=== PATIENT | female | born 1950 | race Caucasian/White ===

== ENCOUNTER 2022-01-07 14:06 | Outpatient (CLI) | payer MEDICARE, SELFPAY ==
[2022-01-07 14:58] LABS: Hematocrit 38.5 % (37.0-47.0); Hemoglobin 12.7 g/dL (12.0-15.0)
== END 2022-01-07 14:07 | disposition home or self-care (01) ==
PROVIDERS: Visit Provider Obstetrics & Gynecology Gynecology
DX: N81.4 Uterovaginal prolapse, unspecified (principal); Z01.818 Encounter for other preprocedural examination
CPT/HCPCS: 36415; 85014; 85018; 86850; 86900; 86901

== ENCOUNTER 2022-01-11 01:15 | Day surgery (SDC) | payer MEDICARE, SELFPAY ==
[2022-01-06 13:27] VITALS: BMI 25.2
--- NOTE | 2022-01-06 13:35 | PC.NURSE ---
Report to the Outpatient Waiting Room, entrance under the green pavilion located off [facility], at time _0630_ on date _[id number]_. OR Time: _0830_. - You and your visitor will be asked to self-screen and do not enter if you have any COVID symptoms. - Only one visitor and NO children visitors are allowed at this time. - The patient visitor is requested to leave or wait in car when not with patient due to restrictions. - A mask is required within the hospital. Patients may have clear liquids (water, carbonated beverages, clear teas, apple juice) until 3 hours prior to surgery with a maximum of 20 ounces. - No food from midnight until time of surgery Take the following medications with a SIP of water the morning of surgery: __None Medications to discontinue per physician __All vitamins and supplements Date to take last hoii___[phone] Please no make-up, nail palauan, hairspray, perfume, deodorant, or body powder the day of surgery. No jewelry (including any body piercings) or valuables the day of surgery, leave them at home. Please take a shower or bath the night before, or the morning of, surgery with an antibacterial soap. Wear comfortable, loose fitting clothing. - Jewelry must be removed prior to entering the operating room. Rings and piercings that are not removed may be cut off. - The hospital will not accept responsibility for valuables. - Please leave all valuables, including medications, at home the day of surgery. If you are going home after surgery, a licensed ambulette driver must drive you home. - NO public transportation without another adult. - We recommend that an adult stay with you for 24 hours following discharge. - We also recommend that you do not drive, make important decision, drink alcoholic beverages, or take any drugs that were not prescribed by your health care provider for at least 24 hours after your discharge time. Follow any additional instructions given to you from your surgeon. If you or anyone in your household have experienced Covid symptoms in the past week, please notify your surgeon or the nurse liaison at the phone number below for possible testing. Telephone instructions given to ___Patient and asked if any additional questions and then verbalized understanding. Patient advised to call surgeon office or pre surgery nurse liaison [phone] if any additional questions.
[2022-01-11] VITALS (10 sets, daily range): BP systolic 98–168; BP diastolic 57–77; PULSE 54–72; RESP 10–18; TEMP 36.2–36.9; O2SAT 93–100
[2022-01-11] MEDS: ACETAMINOPHEN 500 MG TABLET 1000 MG PO (06:58)
[2022-01-11] MEDS: KETOROLAC 15 MG/ML VIAL (*BKC) IV PUSH (07:00)
--- NOTE | 2022-01-11 07:19 | WPDHPUPDATE1 ---
History and Physical Update Update Date/Time: 01/11/22 07:19 History and Physical has been reviewed, including an updated exam of the patient. There are NO changes in the patient's condition. Risks, benefits, and alternatives have been discussed and questions answered. Patient agrees to proceed with procedure.
--- NOTE | 2022-01-11 07:19 | PM.HPGS ---
History of Present Illness History of Present Illness Consent: Risks, benefits, and alternatives have been discussed and questions answered. Patient agrees to proceed with procedure. Chief complaint: Cystocele and Uterine Prolapse Narrative: Mis Puentes is a 71 year old female with uterine prolapse and a cystocele. Patient reports feeling constant pulling and pressure in the vagina as well as feeling a bulge at the opening vagina. Supported urodynamics were normal without any leaking identified. It was recommended to proceed with total vaginal hysterectomy and anterior vaginal repair. In addition, if the ovaries are able to be reached vaginally, we will plan for possible BSO. Risks of infection, bleeding, injury to internal organs (bowel, bladder, ureters), DVT, conversion to open procedure, and anesthesia were reviewed. Patient's questions were answered. Postoperative expectations were reviewed. Patient voices understanding and agrees to proceed. Review of Systems Review of Systems: not repeated day of surgery; patient states no changes in status PMFSH Past Medical History Medical History (Updated 01/11/22 @ 07:24 by Sienna Maher MD) (normal spontaneous vaginal delivery) x4 Surgical History Surgical History (Updated 01/11/22 @ 07:23 by Sienna Maher MD) History of bilateral tubal ligation Social History Social History Smoking status: Never smoker Living arrangements: with family Spiritual care concerns: No Meds Home Medications and Allergies Home Medications Medication Instructions Recorded Confirmed Type Ancient Nutrition 1 tsp PO DAILY 01/06/22 01/06/22 History [place] Q Plus Max 2 cap PO BID 01/06/22 History multivitamin 1 tablet PO DAILY 01/06/22 01/06/22 History psyllium husk 3.4 gram/5.4 gram 1 tbsp PO DAILY 01/06/22 01/06/22 History oral powder (Metamucil) vitamins A,C,V-qgfi-rcdbej 2,148 1 tablet PO DAILY 01/06/22 01/06/22 History mcg-113 mg-45 mg-17.4 mg tablet (PreserVision AREDS) Allergies Allergy/AdvReac Type Severity Reaction Status Date / Time No Known Allergies Allergy Verified 01/06/22 13:22 Exam Const: General: healthy appearing and alert Orientation/consciousness: patient oriented x3 GI: GI Palp: Yes Soft to palpation, No Tenderness to palpation present (GI) and No Palpable mass present : External Female Exam: normal external appearance Speculum Exam - Vagina: normal appearance of the vagina, normal vaginal discharge and other (Cystocele) Speculum Exam - Cervix: normal appearance of the cervix Bimanual exam- vagina & uterus: uterine size normal, consistency normal and other (Uterine descent +1 from spines) Bimanual Exam- Adnexa, other: normal adnexae and No adnexal tenderness Neuro: General: patient oriented x3 Assessment and Plan Assessment and plan (1) Cystocele with uterine prolapse: Code(s): N81.4 - Uterovaginal prolapse, unspecified Status: Acute Assessment and Plan: Plan to proceed with total vaginal hysterectomy and anterior vaginal repair and possible bilateral salpingo-oophorectomy
[2022-01-11] MEDS: LACTATED RINGERS 1,000 ML 30 ML IV CONT ×2 (07:26→09:45)
--- NOTE | 2022-01-11 07:44 | P.PNAN_ITS ---
Anes - Initial Pre Proc Eval Procedure: Operation Date: 01/11/22 08:30 Proposed Procedures p Total Vaginal Hysterectomy with Anterior Vaginal Repair - Sienna Maher MD Date/Time: 01/11/22 07:44 Surgeon: Sienna Maher MD Pre Op Diagnosis: Cystocele and Uterine Prolapse Patient Data Age: 71 Gender: F Height: 1.63 m Weight: 66.8 kg Allergies Allergy/AdvReac Type Severity Reaction Status Date / Time No Known Allergies Allergy Verified 01/06/22 13:22 Home Medications Medication Instructions Recorded Confirmed Type Ancient Nutrition 1 tsp PO DAILY 01/06/22 01/06/22 History [place] Q Plus Max 2 cap PO BID 01/06/22 History multivitamin 1 tablet PO DAILY 01/06/22 01/06/22 History psyllium husk 3.4 gram/5.4 gram 1 tbsp PO DAILY 01/06/22 01/06/22 History oral powder (Metamucil) vitamins A,C,Y-xybf-trzias 2,148 1 tablet PO DAILY 01/06/22 01/06/22 History mcg-113 mg-45 mg-17.4 mg tablet (PreserVision AREDS) Patient hx anesthesia problems: none Family hx anesthesia problems: none Results Review: All pre-operative results and documents have been reviewed as part of the pre- operative evaluation. [facility] Surgical History Surgical History History of bilateral tubal ligation Social History Social History Smoking status: Never smoker Living arrangements: with family Spiritual care concerns: No Anes - Eval Final PreProcedure Day of Procedure 01/11/22 07:44 Patient weight: overweight Heart: regular rate and rhythm Lungs: clear to auscultation Airway: Mallampati scale class II Neurological: alert and oriented Last oral intake: >/= 8 hours ASA classification: II Emergent: no Anesthetic plan: proceed Anesthesia type and monitoring: general LMA and standard monitoring Results Review: All pre-operative results and documents have been reviewed as part of the pre- operative evaluation. Informed Consent: The patient's anesthetic plan and its attendant risks and benefits were discussed with the patient/family/POA. Questions were solicited and answers provided to the satisfaction of the patient/family/POA.
[2022-01-11] MEDS: ceFAZolin 2 GM/D5W 50 ML 2 GM/50 ML BAG IVPB (08:19)
[2022-01-11] MEDS: LIDO 1%/EPINEPHRINE 1:100,000 50 ML VIAL INFILTRATE (09:31)
--- NOTE | 2022-01-11 09:38 | W.PM.PROC2 ---
Procedure Note - Detailed Date of Procedure 01/11/22 Pre-op Diagnosis Cystocele and Uterine Prolapse Post-op Diagnosis Same Procedure Performed Total vaginal hysterectomy & anterior vaginal repair Surgeon Sienna Maher MD Anesthesia General Findings Third-degree cystocele with uterine prolapse Description of Procedure The patient was taken to the operating room and placed under anesthesia in the dorsal lithotomy position. She was prepped and draped in usual sterile fashion. The Reilly catheter was placed prior to the procedure. The short weighted speculum was placed posteriorly. The Lucille retractor was placed anteriorly. The cervix was grasped on the anterior lip with a tenaculum. The vaginal mucosa is injected in a circumferential manner around the cervix. The scalpel was used to incise the vaginal mucosa in a circumferential manner around the cervix. The vaginal mucosa was dissected off anteriorly using sharp and blunt dissection. The peritoneum was entered and the Lucille retractor replaced. The posterior vaginal mucosa was dissected off using sharp and blunt dissection. The posterior peritoneum is entered. The short weighted speculum was removed. The long weighted speculum is placed through the posterior perineal incision. The cardinal and uterosacral ligaments were serially clamped, transected, and suture ligated with 0 Vicryl. The uterosacral ligaments were tagged for future use. The uterine vessels are clamped, transected, and suture ligated with 0 Vicryl. The posterior fundus is grasped with a piercing towel clamp and delivered to the cul-de-sac. The uterosacral ligaments are clamped, transected, and suture ligated with 0 Vicryl. The ovaries are not visible or palpable. The specimen was amputated and handed to the staff. The long weighted speculum was replaced with a short weighted speculum. The peritoneum was grasped anteriorly and posteriorly with a Peon. All pedicles were noted to be hemostatic. The peritoneum was closed using 0 Ethibond in a pursestring fashion incorporating the previously tagged uterosacral ligaments. The vaginal mucosa was then closed using 0 Vicryl in a running locked fashion. The Lucille retractor was removed and the base of the cystocele grasped at 5 and 7 with Allis clamps. The intervening tissue was incised with a scalpel. The vaginal mucosa in the midline is injected with 1% lidocaine with epinephrine. The midline dissection is performed using Metzenbaum scissors. The mucosa is incised and grasped with Allis clamps until the apex was reached. A single apex Allis clamp is placed. The lateral dissection is performed using blunt dissection. Once the cystocele was dissected off the vaginal mucosa, the cystocele was reduced using 0 Ethibond interrupted horizontal mattress sutures. Once the cystocele was fully reduced, the excess vaginal mucosa is excised using Metzenbaum scissors. The vaginal mucosa was then closed using 0 Vicryl in a running locked fashion. Good hemostasis is noted. Vaginal packing coated with Premarin cream is placed and all instruments are removed. Sponge, needle, and instrument counts are correct per the OR staff. The patient is awakened from anesthesia and taken to recovery in stable condition. Estimated Blood Loss 50 Drains Yes (Reilly catheter) Packing Yes (Vaginal) Pathology Yes (Uterus) Complications No immediate complications Condition Stable Disposition PACU
--- NOTE | 2022-01-11 09:44 | P.DS_ITS ---
DS: Admitting Diagnosis Discharge Date 01/12/22 Admitting Diagnosis Uterine prolapse with cystocele DS: Discharge Diagnosis Discharge Diagnosis (1) S/P vaginal hysterectomy: Code(s): Z90.710 - Acquired absence of both cervix and uterus Status: Acute (2) S/P anterior colporrhaphy: Code(s): Z98.890 - Other specified postprocedural states Status: Acute (3) Cystocele with uterine prolapse: Code(s): N81.4 - Uterovaginal prolapse, unspecified Status: Acute DS: Summary Hospital Course Hospital Course: The patient is tolerating a regular diet, voiding, and ambulating prior to discharge. Status at Discharge Functional status at discharge: independent ambulation Overall status at discharge: patient is progressing back to baseline Time Spent with Patient Time attestation: Total time spent providing and/or coordinating discharge services: DS: Data Data Completed and Pending Pending studies at discharge: Pending at discharge 01/11/22 09:30 Surgical [PTH] Routine Discharge Plan Discharge Patient Disposition: Home, Self-Care Stand Alone Forms: General Discharge Instructions Follow-up/Referrals: Sienna Maher MD [Physician] - 1 Week (and 6 wk) Discharge Medications: Continued Ancient Nutrition 1 tsp PO DAILY multivitamin Tablet 1 tablet PO DAILY PreserVision AREDS 2,148 mcg-113 mg-45 mg-17.4mg Tablet 1 tablet PO DAILY Rx Instructions: administer with AM and PM meals Metamucil 3.4 gram/5.4 gram Powder 1 tbsp PO DAILY Rx Instructions: mix into at least 8 oz of water or juice before administering [place] Q Plus Max 2 cap PO BID
[2022-01-11] MEDS: fentaNYL CITRATE INJ (*CRX) 100 MCG/2 ML VIAL 25 MCG IV PUSH (10:19)
[2022-01-11] MEDS: ONDANSETRON INJ 4 MG/2 ML VIAL IV PUSH (10:31)
--- NOTE | 2022-01-11 10:54 | OBPPTRN ---
Patient transferred to post room # 289 via bed. Oriented to unit, room, information board, admission packet and security measures. Patient verbalizes understanding.
[2022-01-11] MEDS: DEXTROSE 5%/0.45% SOD CHL 1,000 ML 125 ML IV CONT (11:06)
[2022-01-11] MEDS: KETOROLAC 30 MG/ML VIAL (*BKC) IV PUSH (15:18)
[2022-01-12 05:00] VITALS: BP 101/55; PULSE 61; RESP 18; TEMP 36.9
--- NOTE | 2022-01-12 07:53 | PM.GYNPNOP ---
[facility] - A/P Postoperative Procedures: Procedures Operation Date: 01/11/22 08:30 Actual Procedure Side Surgeon p Total Vaginal Hysterectomy with Anterior Vaginal Repair Not Applicable Sienna Maher MD Postoperative day: 1 Postoperative status: doing well Postoperative plan: routine post-op care and discharge Time Spent With Patient Time: Total time spent is greater than 50% in coordination of care (as documented) at patient's floor/unit and/or counseling patient: Time with patient: less than 15 minutes [facility] [facility]- PN:Subj Post-Op Subjective Date/time seen: 01/12/22 07:53 Subjective: patient reports feeling better, patient has no complaints and pain is well controlled Exam Narrative: abdomen soft, nd [facility] [facility] - PN: Obj Data Vital Signs Vital Signs: Vital Signs - 24 hr 01/11/22 08:00 01/11/22 09:45 01/11/22 10:00 Temperature 98.5 F 97.2 F L Pulse Rate 64 60 54 L Respiratory Rate 16 10 L 16 Blood Pressure 168/77 H 112/68 120/66 Pulse Oximetry 100 100 100 Oxygen Delivery Room Air Simple Face Mask Simple Face Mask Oxygen Flow Rate 5 5 01/11/22 10:05 01/11/22 10:15 01/11/22 10:30 Temperature Pulse Rate 58 L 59 L Respiratory Rate 16 18 Blood Pressure 112/69 120/74 Pulse Oximetry 96 93 Oxygen Delivery Room Air Room Air Room Air Oxygen Flow Rate 01/11/22 10:42 01/11/22 11:00 01/11/22 15:30 Temperature 97.1 F L 97.6 F Pulse Rate 64 60 72 Respiratory Rate 18 18 16 Blood Pressure 106/70 120/69 105/67 Pulse Oximetry 93 94 100 Oxygen Delivery Room Air Oxygen Flow Rate 01/11/22 15:30 01/11/22 18:40 01/11/22 18:40 Temperature 97.8 F Pulse Rate 72 70 Respiratory Rate 16 16 Blood Pressure 102/58 L Pulse Oximetry 100 98 Oxygen Delivery Room Air Room Air Oxygen Flow Rate 01/11/22 23:50 01/11/22 23:50 01/12/22 05:00 Temperature 98.4 F 98.4 F Pulse Rate 56 L 61 Respiratory Rate 16 18 Blood Pressure 98/57 L 101/55 L Pulse Oximetry 99 Oxygen Delivery Room Air Oxygen Flow Rate 01/12/22 05:00 Temperature Pulse Rate Respiratory Rate Blood Pressure Pulse Oximetry Oxygen Delivery Room Air Oxygen Flow Rate Intake/Output Intake/Output: Intake & Output 01/09/22 01/10/22 01/11/22 01/12/22 23:59 23:59 23:59 23:59 Intake Total 2400 400 Output Total 1595 350 Balance 805 50 Meds/Results Medications: Active Medications Generic Name Dose Route Start Last Admin Trade Name Freq PRN Reason Stop Dose Admin Acetaminophen 1,000 mg 01/11/22 10:46 Acetaminophen 500 Mg Tablet PO Q6H PRN Mild Pain (1-3) or Fever Hydrocodone Bitart/Acetaminophen 1 tab 01/11/22 10:46 Hydrocodone/Acetaminophen (*Crx) 5-325 Mg Tablet PO Q3H PRN Pain Rated 5 or Less Hydrocodone Bitart/Acetaminophen 1 tab 01/11/22 10:46 Hydrocodone/Acetaminophen (*Crx) 10-325 Mg Tablet PO Q3H PRN Pain Rated 6 or Greater Ibuprofen 600 mg 01/11/22 10:46 Ibuprofen 600 Mg Tablet PO Q6H PRN Cramping Ketorolac Tromethamine 30 mg 01/11/22 10:46 01/11/22 15:18 Ketorolac 30 Mg/Ml Vial (*Bkc) IV PUSH 01/16/22 10:45 30 mg Q6H PRN Administration Pain Rated 4-6 Naloxone HCl 0.1 mg 01/11/22 10:46 Naloxone Hcl 0.4 Mg/Ml Vial IV PUSH Q2M PRN Respiratory rate less than 10 Ondansetron HCl 4 mg 01/11/22 10:46 Ondansetron Inj 4 Mg/2 Ml Vial IV PUSH Q6H PRN Nausea And Vomiting Psyllium Hydrophilic Mucilloid 1 packet 01/12/22 09:00 Psyllium Powder Packet PO DAILY DARÍO Simethicone 80 mg 01/11/22 10:46 Simethicone 80 Mg Tab.Chew PO Q2H PRN Gas
[2022-01-12] MEDS: IBUPROFEN 600 MG TABLET PO (08:06)
[2022-01-12 08:25] VITALS: BP 109/60; PULSE 58; RESP 16; TEMP 36.7; O2SAT 98
[2022-01-12] MEDS: PSYLLIUM POWDER PACKET 1 PACKET PO (09:23)
== END 2022-01-12 10:55 | disposition home or self-care (01) ==
LOC: ANHSURGERY 06:28 → ANHOB2 10:48
PROVIDERS: Visit Provider Obstetrics & Gynecology Gynecology
PROC: (CPT 58260; principal; 2022-01-11 08:30)
DX: N81.3 Complete uterovaginal prolapse (principal); N84.0 Polyp of corpus uteri
CPT/HCPCS: 57240; 58260; 36415; 85014; 85018; 86850; 86900; 86901; 88307; 99199; A9270; J0690; J1100; J1885; J2250; J2405; J2704; J2710; J3010; J7120